=== PATIENT | female | born 1945 | race Caucasian/White ===

== ENCOUNTER → 2016-12-21 | Outpatient (CLI) | payer MEDICARE, OTHER ==
[~2016-12-21] MED LIST: ASPI-664 PO; BUPR300T48 PO; HYDR-762 PO; SENN-25 PO; TEMA15CA6 PO; URE25 PO; VIBRYD PO; ZOC20 PO
--- NOTE | 2016-12-21 18:57 | RADRPT ---
PROCEDURE: Left knee radiographs. CLINICAL INDICATION: Left knee pain. Postop. TECHNIQUE: Three views. Weight bearing. Frontal, lateral, and patellar view. COMPARISON: 03/07/2016. FINDINGS: There is no fracture or dislocation. The soft tissues are normal. There is a total left knee constrained arthroplasty which appears satisfactory. There is no lytic or blastic lesion. There is no joint effusion. IMPRESSION: 1. Satisfactory postoperative appearance of the left knee. RPTAT: QQ .Fili Sanford MD, Date Time Electronically viewed and signed by .Fili Sanford MD, on 12/21/2016 18:56 .R/
--- NOTE | 2016-12-26 06:43 | HKNOTE ---
DATE OF SERVICE: 12/22/2016 MAIN COMPLAINT: Pain in the left knee. HISTORY OF MAIN COMPLAINT: The patient is a 71-year-old female who underwent a left knee replacemen t on 01/10/2015. She has had pain in the knee ever since. She is not able to kneel [she likes to [place]]. She has trouble going down stairs. She lives in a tri level house. She has several pain around the left knee. The main pain starts at the tibial tubercle and radiates down the anterior tibial spine to the mid leg. The second pain is over the medial parapatellar sof t tissue area. The third pain is over the lateral peripatellar area. Sometimes the pain "shoots do wn my leg like an electric shock." This happens about once a week. She gets a tingling sensation over the lateral aspect of the knee where there is also some numbness. She gets pain in the knee after walking "too much" [in the shopping mall, for example[place] She state s that she has "a weird feeling all the way down the front of my calve to about 2/3 down the leg." She does not have any back pain. She has never had an MRI scan of the lumbar spine. PHYSICAL EXAMINATION GENERAL: A fit looking 71-year-old female. VITAL SIGNS: Height 5 feet 2 inches, weight 145 pounds. Blood pressure 120/60, temperature 98.0. LEFT KNEE: Full range of motion without pain. No tenderness anywhere around the knee, especially n ot along the joint lines and also more especially over the bursae. The patella appears to track wit hin its knee replacement track. She has no pain whatsoever on putting the knee through range of mot ion. No external sign of infection or inflammation. BACK: Dynamic pain assessment reveals a pain free range of motion in flexion, extension, lateral be nding, and rotation. Inspection of the spine reveals no list. There is no lumbar paraspinal muscle s pasm. The pelvis is level. Facet stress test is negative bilaterally. Palpation of the spine demonst rates no tenderness of the spinous processes, facet joints, sacroiliac joint, sciatic notch, or post erior thigh. Lateral flexion to the right and hyperextension cause her to have some reproduction of pain in the left knee. NEUROLOGIC: Motor examination reveals no muscle deficit in the lower extremities. Deep tendon refle xes in the lower extremities: Right knee jerk plus, left knee jerk plus, right ankle jerk plus, lef t ankle jerk plus. Straight leg raising is negative bilaterally at 80 degrees. Lasegue and KINDRA kendall ts are negative. IMAGING: Plain x-rays of the left knee obtained at the [facility] and [place] were reviewed. The se show an absolutely perfect knee replacement operation. The patella track is slightly angled so t hat the combined patella and implant are not completely symmetrical, and there may be some lateral s ubluxation of the patella. DISCUSSION: The patient is advised once again that I do not believe that her pain is coming from he r knee. In all likelihood, her pain is coming from the lumbar spine. I have seen patients like marquis s before who have insisting on going somewhere else to have the knee evaluated and have ended up wit h a knee replacement revision which is a fairly extensive operation with high risk, especially in a person of her age, and have not been improved at all by the operation. Instead, I have recommended that she have a second opinion consultation with Dr. Gooden or Dr. Regina murrieta or any other physician of her choice. She was given the names of the above 2 physicians. She wi ll be seen again as necessary for further evaluation and treatment. DIAGNOSES: 1. Status post left total knee replacement. 2. Left-sided sciatica. Dictated By: JEWEL PEARSON/AMEE Conf#: [id number] DID#: [id number]
== END | disposition home or self-care (01) ==
LOC: HKI 13:42
DX: M54.32 Sciatica, left side (principal); Z96.652 Presence of left artificial knee joint
CPT/HCPCS: 73562; G0463